=== PATIENT | female | born 1975 | race African-American/Black ===

== ENCOUNTER 2019-04-12 23:14 | Emergency (ER) | payer BC ==
[~2019-04-12] VITALS: Ht 162.6 cm; Wt 101.6 kg
[~2019-04-12 23:14] MED LIST: MACROBID 100 M100 MG PO
--- NOTE | 2019-04-13 00:38 | Emergency Room Report ---
History of Present Illness General Chief Complaint: Complications Source: Patient Present Illness HPI Is a 43-year-old female who is 2, para 1, 40 weeks gestation. She presents with chief amount of headache. She also wanted an OB ultrasound to check for fluids and measurements. She saw her OB a couple days ago. In the office, her blood pressure was elevated. She never had this problem before. She also said that they tell her that her amniotic fluid was a little low. Patient had mild headache and wanted to see if her blood pressure elevated. She has no headache now. She felt the baby moving. No trauma. No bleeding. No other complaint. Has not take anything for it. Allergies: Coded Allergies: SULFAMETHOXAZOLE (Verified Allergy, 06/15/12) TRIMETHOPRIM (Verified Allergy, 06/15/12) Patient History Past Medical History: see triage record, old chart reviewed Past Surgical History: none Pertinent Family History: none Social History: Denies: smoking Last Menstrual Period: Jun 2018 Now: Yes : 2 Para: 1 Immunizations: other Reviewed Nursing Documentation: PMH: Agreed; PSxH: Agreed Review of Systems Eye: Denies: eye pain, blurred vision ENT: Denies: ear pain, nose congestion, throat swelling Respiratory: Denies: cough, shortness of breath Cardiovascular: Denies: chest pain, palpitations Gastrointestinal: Denies: abdominal pain, diarrhea, nausea, vomiting Musculoskeletal: Denies: back pain, joint pain Skin: Denies: rash Neurological: Reports: headache; Denies: numbness Endocrine: Denies: increased thirst, increased urine Hematologic/Lymphatic: Denies: easy bruising All Other Systems: negative except mentioned in HPI Physical Exam Vital Signs Date Time Temp Pulse Resp B/P (MAP) Pulse Ox O2 Delivery O2 Flow Rate FiO2 04/12/19 23:23 98.2 83 16 123/77 (92) 95 Room Air Vitals normal Sp02 EP Interpretation: reviewed, normal General Appearance: well appearing, no apparent distress, alert Head: normocephalic, atraumatic Eyes: bilateral eye PERRL, bilateral eye EOMI ENT: hearing grossly normal, normal pharynx Neck: full range of motion, supple, no meningismus Respiratory: chest non-tender, lungs clear, normal breath sounds Cardiovascular #1: regular rate, rhythm, no murmur Gastrointestinal: normal bowel sounds, non tender, no mass, no organomegaly, no bruit, non-distended, other - Gravid Musculoskeletal: back normal, gait/station normal, normal range of motion Psychiatric: mood/affect normal Medical Decision Making Diagnostic Impression: Primary Impression: Headache Qualified Codes: G44.209 - Tension-type headache, unspecified, not intractable Additional Impression: 40 weeks gestation of ER Course Patient with headache. Most likely tension in nature. Her headache resolved. I suspect that she is here because she wants to get an OB ultrasound to measure amniotic fluid. I offered to do an bedside ultrasound to look at the baby to see heart rate and movement. She refused. She states she knows that there is nothing wrong with the baby since it is moving well. Explained to her that there is no emergent indication to get OB ultrasound to measure fluids and size of the baby since she has no symptoms. She already had it done a couple days ago. She will need to follow-up with her [facility]. She may need to be induced since she is 40 weeks gestation. No evidence of HELLP syndrome. No evidence of preeclampsia. Last Vital Signs Date Time Temp Pulse Resp B/P (MAP) Pulse Ox O2 Delivery O2 Flow Rate FiO2 04/12/19 23:23 98.2 83 16 123/77 (92) 95 Room Air Status: improved Disposition: HOME, SELF-CARE Condition: Stable Referrals: NON PHYSICIAN (PCP) Additional Instructions: May only take Tylenol for headache. Avoid aspirin or NSAIDs (Motrin, Advil, Aleve, Naprosyn name a few.). Follow-up with your [facility] as scheduled. Return if worse. Trever Boyle MD Apr 13, 2019 00:38
[2019-04-13 00:42] VITALS: BP 123/77
== END 2019-04-13 00:42 | disposition home or self-care (01) ==
LOC: EMR 04-13 00:11
DX: O26.93 Pregnancy related conditions, unspecified, third trimester (principal); G44.209 Tension-type headache, unspecified, not intractable; Z3A.40 40 weeks gestation of pregnancy; Z88.2 Allergy status to sulfonamides; Z88.8 Allergy status to other drugs, medicaments and biological substances
CPT/HCPCS: 99282